=== PATIENT | female | born 2000 | race Caucasian/White ===

== ENCOUNTER 2020-05-02 09:01 | Outpatient (CLI) | payer MEDICAID, SELFPAY ==
[2020-05-02 11:21] LABS: Basophils % 0.5 %; Eosinophils # 0.1 10^3/uL (0.0-0.8); Eosinophils % 1.7 %; Hematocrit 29.5 % (37.0-47.0); Hemoglobin 7.5 g/dL (11.5-15.3); Lymphocytes # 2.4 10^3/uL (1.5-6.5); Lymphocytes % 28.9 %; Mean Corpuscular HGB Conc 25.4 g/dL (30.0-36.0); Mean Corpuscular Hemoglobin 16.4 pg (28.0-34.0); Mean Corpuscular Volume 64.4 fL (81-99); Monocytes # 0.5 10^3/uL (0.2-0.9); Monocytes % 6.4 %; Neutrophils # 5.16 10^3/uL (1.8-8.0); Nucleated Red Blood Cells % 0 %; Platelet Count 361 10^3/cmm (130-400); Red Blood Count 4.58 10^6/uL (4.1-5.3); Red Cell Distribution Width 29.5 % (12.1-15.1); White Blood Count 8.3 10^3/uL (4.5-13.0)
[2020-05-02 11:41] LABS: Ferritin 8 ng/mL (15-150); Iron 10 ug/dL (37-145); Percent Saturation 3.4 % (20-50); Total Iron Binding Capacity 291 mcg/dl; Unsaturated Iron Binding 281 ug/dL (112-347)
[2020-05-02 11:53] LABS: Slide Review Slide Review Perform
[2020-05-02 11:55] LABS: Vitamin B12 545 pg/mL (232-1245)
--- NOTE | 2020-05-04 13:35 | ONC CON_ITS ---
Dr. Pizarro New Patient Note Patient: Wendy Eng Unit #: [id number]: 2000 Dicatated By: Dre Pizarro M.D.Date of Visit: May 02, 2020 Onc MED New Patient/Consult Referring Physician: Curt Camacho N.P. History of Present Illness: Ms. Wendy Eng, is a 19-year-old female with a history of heavy menstrual bleeding for which she has been seeing [facility] in [place], as per patient she was given hormonal therapy with estradiol and TXA prior to further evaluation but she could not get her medication and continues to have heavy bleeding and recently on March 26, 2020 went to the emergency room with rapid heartbeat and dyspnea on exertion of 1 week duration she was also complaining of pain in the upper anterior chest and little numbness in her hands.. And labs done on March 26, 2020 showed white blood count 11 hemoglobin is 5.5 g hematocrit 21.7 MCV 55.1 and platelets 372,000, cardiac enzymes are within normal range patient was given 2 units of blood transfusion with that she felt better and symptoms resolved but continued to feel weak and tired.Her repeat labs on April 18, 2020 showed white blood count 7 hemoglobin 7.6 hematocrit 29.2 MCV 63.9 platelets 328,000 iron studies shows iron 14, iron saturation 4%, TIBC 353 As per patient, in the past she was given IV iron at [facility] but she did develop allergic type of reaction to parenteral iron like feeling choking but she does remember the name of iron infusion. But patient has been taking oral iron for a long time without significant improvement in her hemoglobin as she continued to have heavy menstrual bleeding. And patient is also noncompliant with her medication.She denies any melena or hematochezia denies any hemoptysis or hematemesis denies any jaundice denies any petechia or ecchymosis denies any hematuria. Denies any night sweats denies any fever chills denies any weight loss. Past Medical History: Ms. Eng's medical history consists of amenorrhea, anxiety, depression, and gastroesophageal reflux disease. Past Surgical History: Ms. Valless surgical/procedural history consists of adenoidectomy, hernia repair, and tonsillectomy. Medications: Albuterol Sulfate HFA Aerosol, solution Inhalation PRN, Cetirizine HCl 1 Tablet (of 10 mg) Oral daily, Cholecalciferol 1 Tablet (of 50 mcg ) Oral q 1 week, Dicyclomine HCl 1 Capsule (of 10 mg) Oral PRN, Escitalopram Oxalate 1 Tablet (of 20 mg) Oral daily, Estradiol 1 Tablet (of 1 mg) Oral daily PRN, Famotidine 1 Tablet (of 20 mg) Oral b.i.d., Ferrous Sulfate 2 Tablet (of 325 (65 fe) mg) Oral q 2 days, metFORMIN HCl 1 Tablet (of 500 mg) Oral daily, orlissa 1 Tablet daily Allergies: Tranexamic Acid Social History: Ms. Eng is single. Ms. Eng has never smoked. She has no history of drinking. Family History: There is no documented family history. Review Of Symptoms: Constitutional - Appetite is fair and weight is increasing. No fever, positive for hot flashes and night sweats. Energy levl is poor, ENMT - Positive for sinus congestion/drainage. No mouth sores. Positive for sore throat, no difficulty swallowing, Hematologic/Lymphatic - No abnormal bruising or bleeding, Respiratory - No shortness of breath. No cough. No pleuritic pain or hemoptysis, Cardiovascular - Positive for chest pain and palpitations, Gastrointestinal - No nausea or vomiting. No heartburn or acid reflux. No diarrhea or constipation. No blood in the stool or black stools, Genitourinary (F) - No dysuria or hematuria. No urinary frequency. No urgency or incontinence, Musculoskeletal - No joint or bone pain, Neurologic - No headache. Positive for dizziness. No numbness or tingling. No other focal neurologic symptoms, Psychiatric - Positive for anxiety, depression and insomnia. Vital Signs: Performed on May 02, 2020 11:10: 0, 45.23 (HIGH), 2.31 sq.m, 66 in, 98 %, 97 /min, 16 /min, 147/72 mm(hg) (HIGH), 97.3 F (LOW), and 280.2 lbs (HIGH). Performance Status: 0 - Fully active, able to carry on all predisease activities without restrictions. (ECOG) Physical Examination: ENMT - No mouth sores, no thrush, no jaundice, Respiratory - Lungs are clear to auscultation, Cardiovascular - Regular rate and rhythm of heart, Abdomen - Soft, bowel sounds present, Extremities - No visible edema. Lab/Imaging: Most recent lab results are not available for this patient. Impression: Severe iron deficiency anemia most likely due to heavy menstrual bleeding, on oral iron Status post 2 units of packed RBCs on March 26, 2020 for hemoglobin 5.5 g. Diabetes, obesity Heavy menstrual bleeding now being evaluated by [facility] in [place] Plan: Discussed with patient regarding her labs which showed White blood count 8.3 hemoglobin 7.5 g hematocrit 29.5 platelets 381,000 MCV 64.4, iron saturation 3.4%, iron 10, ferritin 8, TIBC 291, B12 545 Clinically, patient is doing reasonably well, no new signs symptom except mild to moderate generalized weakness and fatigue due to moderate iron deficiency anemia, patient is on oral iron supplement ferrous sulfate 1 tablet daily and still having heavy menstrual bleeding, patient was advised to increase iron supplement twice a day for 1 month and suggested to take it empty stomach with vitamin C for better absorption in the meantime will obtain records from [facility] regarding formulation of parenteral iron given there to which patient developed allergic reaction, as patient has history of noncompliance and if her repeat labs and iron studies in 1 month shows no improvement then will try another form of parenteral iron but with a test dose prior to infusion Return to clinic in 1 month with CBC and iron studies. Patient was advised in case she developed dizziness, chest pain or palpitation she need to call us early for evaluation or go to emergency room.Patient was also advised to avoid aspirin or NSAIDs Signed By: Dre Pizarro M.D. <<Signature on File>>
== END 2020-05-02 09:02 | disposition home or self-care (01) ==
LOC: ONCMED 09:05
PROVIDERS: PCP Nurse Practitioner Family; Visit Provider Internal Medicine Hematology & Oncology
DX: D50.9 Iron deficiency anemia, unspecified (principal); N92.0 Excessive and frequent menstruation with regular cycle
CPT/HCPCS: 36415; 82607; 82728; 83540; 83550; 85025; 99203

== ENCOUNTER 2020-06-04 13:56 | Outpatient (CLI) | payer MEDICAID, SELFPAY ==
[2020-06-04 14:51] LABS: Basophils % 0.4 %; Eosinophils # 0.1 10^3/uL (0.0-0.8); Eosinophils % 1.8 %; Hematocrit 31.7 % (37.0-47.0); Hemoglobin 8.2 g/dL (11.5-15.3); Lymphocytes # 2.3 10^3/uL (1.5-6.5); Lymphocytes % 34.6 %; Mean Corpuscular HGB Conc 25.9 g/dL (30.0-36.0); Mean Corpuscular Hemoglobin 16.3 pg (28.0-34.0); Monocytes # 0.5 10^3/uL (0.2-0.9); Monocytes % 7.4 %; Neutrophils # 3.68 10^3/uL (1.8-8.0); Neutrophils % 54.8 %; Nucleated Red Blood Cells % 0 %; Platelet Count 163 10^3/cmm (130-400); Red Blood Count 5.03 10^6/uL (4.1-5.3); Red Cell Distribution Width 25.7 % (12.1-15.1); White Blood Count 6.7 10^3/uL (4.5-13.0)
[2020-06-04 15:22] LABS: Ferritin 6 ng/mL (15-150); Iron 21 ug/dL (37-145); Percent Saturation 6.4 % (20-50); Total Iron Binding Capacity 324 mcg/dl; Unsaturated Iron Binding 303 ug/dL (112-347)
[2020-06-04 15:32] LABS: Slide Review Slide Review Perform
--- NOTE | 2020-06-04 16:12 | ONC FU_ITS ---
Dr. Pizarro follow up note Patient: Wendy Eng Unit #: [id number]: 2000 Dicatated By: Dre Pizarro M.D.Date of Visit:Jun 04, 2020 Onc Med Follow-up/Prog Note History of Present Illness: Ms. Wendy Eng, is a 19-year-old female with a history of heavy menstrual bleeding for which she has been seeing [facility] in [place], as per patient she was given hormonal therapy with estradiol and TXA prior to further evaluation but she could not get her medication and continues to have heavy bleeding and recently on March 26, 2020 went to the emergency room with rapid heartbeat and dyspnea on exertion of 1 week duration she was also complaining of pain in the upper anterior chest and little numbness in her hands.. And labs done on March 26, 2020 showed white blood count 11 hemoglobin is 5.5 g hematocrit 21.7 MCV 55.1 and platelets 372,000, cardiac enzymes are within normal range patient was given 2 units of blood transfusion with that she felt better and symptoms resolved but continued to feel weak and tired.Her repeat labs on April 18, 2020 showed white blood count 7 hemoglobin 7.6 hematocrit 29.2 MCV 63.9 platelets 328,000 iron studies shows iron 14, iron saturation 4%, TIBC 353 As per patient, in the past she was given IV iron at [facility] but she did develop allergic type of reaction to parenteral iron like feeling choking but she does not remember the name of iron infusion. But patient has been taking oral iron for a long time without significant improvement in her hemoglobin as she continued to have heavy menstrual bleeding. And patient is also noncompliant with her medication.She denies any melena or hematochezia denies any hemoptysis or hematemesis denies any jaundice denies any petechia or ecchymosis denies any hematuria. Denies any night sweats denies any fever chills denies any weight loss. Came for follow-up, denies any specific complaints except generalized weakness and fatigue on exertion, no melena or hematochezia, no nausea or vomiting, no diarrhea constipation, no menstrual periods since last visit, tolerating oral iron reasonably well Medications: Albuterol Sulfate HFA Aerosol, solution Inhalation PRN, Cetirizine HCl 1 Tablet (of 10 mg) Oral daily PRN, Dicyclomine HCl 1 Capsule (of 10 mg) Oral PRN, Escitalopram Oxalate 1 Tablet (of 20 mg) Oral daily, Estradiol 1 Tablet (of 1 mg) Oral daily PRN, Famotidine 1 Tablet (of 20 mg) Oral b.i.d., Ferrous Sulfate 2 Tablet (of 325 (65 fe) mg) Oral q 2 days, metFORMIN HCl 1 Tablet (of 500 mg) Oral daily Allergies: Tranexamic Acid Review of Systems: Review of Systems is not available for this patient. Vital Signs: Performed on Jun 04, 2020 15:32 Height - 66.00 in Weight - 283.4 lbs (HIGH) BSA - 2.32 sq.m BMI - 45.74 (HIGH) Temperature - 97.5 F (LOW) Pulse - 71 /min Respiration - 18 /min BP - 135/81 mm(hg) O2 Sat - 99 % Pain - 0 Performance Status: 1 - No physically strenuous activity, but ambulatory and able to carry out light or sedentary work (e.g. office work, light house work). (ECOG) Physical Examination: ENMT - No mouth sores, no thrush, no jaundice, Respiratory - Lungs are clear to auscultation, Cardiovascular - Regular rate and rhythm of heart, Abdomen - Soft, bowel sounds present, Extremities - No visible edema. Lab/Imaging: Test performed on May 02, 2020 11:10 Ferritin 8 ng/mL Iron 10 mcg/dL Vitamin B12 545 pg/mL Iron Binding Capacity (TIBC) 291 mcg/dl % Iron Saturation 3.4 % UIBC 281 mcg/dL WBC 8.3 10 3/uL RBC 4.58 10 6/uL HGB 7.5 g/dL HCT 29.5 % MCV 64.4 fL MCH 16.4 pg MCHC 25.4 g/dL RDW 29.5 % Platelet Count 361 10 3/cmm Neutrophils 5.16 10 3/uL Lymphocytes 2.4 10 3/uL Monocytes 0.5 10 3/uL Eosinophils 0.1 10 3/uL Basophils 0.0 10 3/uL Neutrophil % 62.0 % Lymphocyte % 28.9 % Monocyte % 6.4 % Eosinophil % 1.7 % Basophils % 0.5 % NRBC % 0 % CBC Slide Review Slide Review Perform SLIDE REVIEW AGREES WITH AUTOMATED RESULT Impression: Severe iron deficiency anemia most likely due to heavy menstrual bleeding, on oral iron Status post 2 units of packed RBCs on March 26, 2020 for hemoglobin 5.5 g. Diabetes, obesity Heavy menstrual bleeding now being evaluated by [facility] in [place] Plan: Discussed with patient regarding her labs white blood count 6.7 hemoglobin 8.2 g compared to 7.5 g on May 02, 2020 hematocrit 31.7 MCV 63, platelets under 63,000 iron saturation 6.4% iron 21 compared to 10 on May 02, 2020 ferritin 6 and her B12 was 545 Clinically, patient is doing reasonably well, tolerating oral iron reasonably well for iron deficiency anemia probably due to heavy menstrual periods, her mother is thinking about transferring her care from [place] to [place] [facility] We are still waiting for information regarding parenteral iron given to her at [facility] in [place], to which patient developed allergic reaction. In the meantime, as her hemoglobin is improving although her iron stores remained low, will continue with oral iron twice a day for another month and she will return to clinic 1 month with CBC and iron studies, if it continues shows improvement we will continue with oral iron otherwise consider switching her to parenteral iron. Signed By: Dre Pizarro M.D. <<Signature on File>>
== END 2020-06-04 13:57 | disposition home or self-care (01) ==
PROVIDERS: PCP Nurse Practitioner Family; Visit Provider Internal Medicine Hematology & Oncology
DX: D50.9 Iron deficiency anemia, unspecified (principal); N92.0 Excessive and frequent menstruation with regular cycle; E11.9 Type 2 diabetes mellitus without complications; E66.9 Obesity, unspecified; Z68.42 Body mass index [BMI] 45.0-49.9, adult; Z79.84 Long term (current) use of oral hypoglycemic drugs
CPT/HCPCS: 36415; 82728; 83540; 83550; 85025; G0463

== ENCOUNTER 2020-07-04 11:05 | Outpatient (CLI) | payer MEDICAID, SELFPAY ==
[2020-07-04 11:58] LABS: Basophils % 0.3 %; Hemoglobin 8.9 g/dL (11.5-15.3); Nucleated Red Blood Cells % 0 %
[2020-07-04 12:05] LABS: Eosinophils # 0.1 10^3/uL (0.0-0.8); Eosinophils % 1.3 %; Lymphocytes % 22.4 %; Mean Corpuscular HGB Conc 26.2 g/dL (30.0-36.0); Mean Corpuscular Hemoglobin 15.9 pg (28.0-34.0); Mean Corpuscular Volume 60.7 fL (81-99); Monocytes # 0.6 10^3/uL (0.2-0.9); Monocytes % 6.7 %; Neutrophils # 6.19 10^3/uL (1.8-8.0); Neutrophils % 68.9 %; Platelet Count 391 10^3/cmm (130-400); Red Cell Distribution Width 23.3 % (12.1-15.1)
[2020-07-04 12:31] LABS: Ferritin 6 ng/mL (15-150); Iron 161 ug/dL (37-145); Total Iron Binding Capacity 322 mcg/dl; Unsaturated Iron Binding 161 ug/dL (112-347)
--- NOTE | 2020-07-04 13:36 | ONC FU_ITS ---
Dr. Pizarro follow up note Patient: Wendy Eng Unit #: [id number]: 2000 Dicatated By: Dre Pizarro M.D.Date of Visit:Jul 04, 2020 Onc Med Follow-up/Prog Note History of Present Illness: Ms. Wendy Eng, is a 19-year-old female with a history of heavy menstrual bleeding for which she has been seeing [facility] in [place], as per patient she was given hormonal therapy with estradiol and TXA prior to further evaluation but she could not get her medication and continues to have heavy bleeding and recently on March 26, 2020 went to the emergency room with rapid heartbeat and dyspnea on exertion of 1 week duration she was also complaining of pain in the upper anterior chest and little numbness in her hands.. And labs done on March 26, 2020 showed white blood count 11 hemoglobin is 5.5 g hematocrit 21.7 MCV 55.1 and platelets 372,000, cardiac enzymes are within normal range patient was given 2 units of blood transfusion with that she felt better and symptoms resolved but continued to feel weak and tired.Her repeat labs on April 18, 2020 showed white blood count 7 hemoglobin 7.6 hematocrit 29.2 MCV 63.9 platelets 328,000 iron studies shows iron 14, iron saturation 4%, TIBC 353 As per patient, in the past she was given IV iron at [facility] but she did develop allergic type of reaction to parenteral iron like feeling choking but she does not remember the name of iron infusion. But patient has been taking oral iron for a long time without significant improvement in her hemoglobin as she continued to have heavy menstrual bleeding. And patient is also noncompliant with her medication.She denies any melena or hematochezia denies any hemoptysis or hematemesis denies any jaundice denies any petechia or ecchymosis denies any hematuria. Denies any night sweats denies any fever chills denies any weight loss. Came for follow-up, denies any specific complaints except starting her menstrual periods again and patient is also transferring her [facility] care from [place] to [place] and now scheduled to see [facility] here in town in July 2020. Tolerating oral iron well otherwise, no abdominal pain, no indigestion, no constipation, no fever chills, no nausea or vomiting Medications: Albuterol Sulfate HFA Aerosol, solution Inhalation PRN, Escitalopram Oxalate 1 Tablet (of 20 mg) Oral daily, Ferrous Sulfate 2 Tablet (of 325 (65 fe) mg) Oral q 2 days Allergies: Tranexamic Acid Review of Systems: Constitutional - Appetite is fair and weight is increasing. No fever, positive for hot flashes and night sweats. Energy levl is poor, ENMT - Positive for sinus congestion/drainage. No mouth sores. Positive for sore throat, no difficulty swallowing, Hematologic/Lymphatic - No abnormal bruising or bleeding, Respiratory - No shortness of breath. No cough. No pleuritic pain or hemoptysis, Cardiovascular - Positive for chest pain and palpitations, Gastrointestinal - No nausea or vomiting. No heartburn or acid reflux. No diarrhea or constipation. No blood in the stool or black stools, Genitourinary (F) - No dysuria or hematuria. No urinary frequency. No urgency or incontinence, Musculoskeletal - No joint or bone pain, Neurologic - No headache. Positive for dizziness. No numbness or tingling. No other focal neurologic symptoms, Psychiatric - Positive for anxiety, depression and insomnia. Vital Signs: Performed on Jul 04, 2020 12:36 Height - 66.00 in Weight - 285.4 lbs (HIGH) BSA - 2.33 sq.m BMI - 46.07 (HIGH) Temperature - 97.6 F (LOW) Pulse - 87 /min Respiration - 20 /min BP - 118/76 mm(hg) O2 Sat - 99 % Pain - 0 Performance Status: 0 - Fully active, able to carry on all predisease activities without restrictions. (ECOG) Physical Examination: ENMT - No mouth sores, no thrush, no jaundice, Respiratory - Lungs are clear to auscultation, Cardiovascular - Regular rate and rhythm of heart, Abdomen - Soft, bowel sounds present, Extremities - No visible edema. Lab/Imaging: Test performed on Jun 04, 2020 14:20 Ferritin 6 ng/mL Iron 21 mcg/dL Iron Binding Capacity (TIBC) 324 mcg/dl % Iron Saturation 6.4 % UIBC 303 mcg/dL WBC 6.7 10 3/uL RBC 5.03 10 6/uL HGB 8.2 g/dL HCT 31.7 % MCV 63.0 fL MCH 16.3 pg MCHC 25.9 g/dL RDW 25.7 % Platelet Count 163 10 3/cmm Neutrophils 3.68 10 3/uL Lymphocytes 2.3 10 3/uL Monocytes 0.5 10 3/uL Eosinophils 0.1 10 3/uL Basophils 0.0 10 3/uL Neutrophil % 54.8 % Lymphocyte % 34.6 % Monocyte % 7.4 % Eosinophil % 1.8 % Basophils % 0.4 % NRBC % 0 % CBC Slide Review Slide Review Perform Test performed on May 02, 2020 11:10 Vitamin B12 545 pg/mL Impression: Severe iron deficiency anemia most likely due to heavy menstrual bleeding, on oral iron Status post 2 units of packed RBCs on March 26, 2020 for hemoglobin 5.5 g. Diabetes, obesity Heavy menstrual bleeding now being evaluated by [facility] in [place] Plan: Discussed with patient regarding her labs white blood count 9 hemoglobin 8.9 g compared to 8.2 g on June 04, 2020 and 7.5 g on May 02, 2020 platelets 391,000 MCV 60.7 iron saturation 50% compared to 6.4% on June 04, 2020 ferritin 6, iron 161 compared to 21 on June 04, 2020 Clinically, patient is doing reasonably well, somewhat more energetic her follow-up labs shows her hemoglobin continue to improve, still has iron deficiency but with some improvement with oral iron supplement., Still waiting for information regarding her parenteral iron infusion given at [facility] in [place] as mentioned earlier patient did develop allergic reaction to parenteral iron there. She return to clinic in 1 month with CBC and iron studies and a follow-up labs shows no improvement in her hemoglobin or iron stores, will consider parenteral iron but before that we will try to get information from [facility] regarding type of parenteral iron she was given to which she developed allergic reaction. Signed By: Dre Pizarro M.D. <<Signature on File>>
== END 2020-07-04 11:06 | disposition home or self-care (01) ==
LOC: ONCMED 11:07
PROVIDERS: PCP Nurse Practitioner Family; Visit Provider Internal Medicine Hematology & Oncology
DX: D50.9 Iron deficiency anemia, unspecified (principal); N92.0 Excessive and frequent menstruation with regular cycle; E11.9 Type 2 diabetes mellitus without complications; E66.9 Obesity, unspecified; Z68.42 Body mass index [BMI] 45.0-49.9, adult
CPT/HCPCS: 36415; 82728; 83540; 83550; 85025; G0463

== ENCOUNTER → 2020-08-01 11:30 | Outpatient (BNVA) | payer MEDICAID, SELFPAY | PROVIDERS: PCP Nurse Practitioner Family; Visit Provider Nurse Practitioner Women's Health | DX: D50.0 Iron deficiency anemia secondary to blood loss (chronic) (principal); N93.9 Abnormal uterine and vaginal bleeding, unspecified | CPT/HCPCS: 83021; 84443; 84702; 85025; 85240; 85245; 85246 ==

== ENCOUNTER → 2020-08-06 09:09 | Outpatient (BNVA) | payer MEDICAID, SELFPAY | PROVIDERS: PCP Nurse Practitioner Family; Visit Provider Nurse Practitioner Women's Health | DX: E28.2 Polycystic ovarian syndrome (principal); N85.4 Malposition of uterus; N83.8 Other noninflammatory disorders of ovary, fallopian tube and broad ligament | CPT/HCPCS: 76830 ==

== ENCOUNTER 2020-08-13 07:59 | Outpatient (CLI) | payer MEDICAID, SELFPAY ==
[2020-08-13 08:43] LABS: Basophils % 0.4 %; Eosinophils # 0.2 10^3/uL (0.0-0.8); Eosinophils % 2.6 %; Hematocrit 31.3 % (37.0-47.0); Hemoglobin 8.2 g/dL (11.5-15.3); Lymphocytes # 2.4 10^3/uL (1.5-6.5); Lymphocytes % 25.9 %; Mean Corpuscular HGB Conc 26.2 g/dL (30.0-36.0); Mean Corpuscular Hemoglobin 16.6 pg (28.0-34.0); Mean Corpuscular Volume 63.2 fL (81-99); Monocytes # 0.7 10^3/uL (0.2-0.9); Monocytes % 7.4 %; Neutrophils # 5.79 10^3/uL (1.8-8.0); Neutrophils % 63.5 %; Nucleated Red Blood Cells % 0 %; Platelet Count 381 10^3/cmm (130-400); Red Blood Count 4.95 10^6/uL (4.1-5.3); Red Cell Distribution Width 29.4 % (12.1-15.1); White Blood Count 9.1 10^3/uL (4.5-13.0)
[2020-08-13 09:04] LABS: Ferritin 7 ng/mL (15-150); Iron 13 ug/dL (37-145); Percent Saturation 3.8 % (20-50); Total Iron Binding Capacity 339 mcg/dl; Unsaturated Iron Binding 326 ug/dL (112-347)
--- NOTE | 2020-08-13 11:16 | ONC FU_ITS ---
Dr. Pizarro follow up note Patient: Wendy Eng Unit #: [id number]: 2000 Dicatated By: Dre Pizarro M.D.Date of Visit:Aug 13, 2020 Onc Med Follow-up/Prog Note History of Present Illness: Ms. Wendy Eng, is a 19-year-old female with a history of heavy menstrual bleeding for which she has been seeing ADULT DAYCARE COORDINATOR in [place], as per patient she was given hormonal therapy with estradiol and TXA prior to further evaluation but she could not get her medication and continues to have heavy bleeding and recently on March 26, 2020 went to the emergency room with rapid heartbeat and dyspnea on exertion of 1 week duration she was also complaining of pain in the upper anterior chest and little numbness in her hands.. And labs done on March 26, 2020 showed white blood count 11 hemoglobin is 5.5 g hematocrit 21.7 MCV 55.1 and platelets 372,000, cardiac enzymes are within normal range patient was given 2 units of blood transfusion with that she felt better and symptoms resolved but continued to feel weak and tired.Her repeat labs on April 18, 2020 showed white blood count 7 hemoglobin 7.6 hematocrit 29.2 MCV 63.9 platelets 328,000 iron studies shows iron 14, iron saturation 4%, TIBC 353 As per patient, in the past she was given IV iron at [facility] but she did develop allergic type of reaction to parenteral iron like feeling choking but she does not remember the name of iron infusion. But patient has been taking oral iron for a long time without significant improvement in her hemoglobin as she continued to have heavy menstrual bleeding. And patient is also noncompliant with her medication.She denies any melena or hematochezia denies any hemoptysis or hematemesis denies any jaundice denies any petechia or ecchymosis denies any hematuria. Denies any night sweats denies any fever chills denies any weight loss. Came for follow-up, denies any specific complaints except generalized weakness and fatigue, patient is tolerating oral iron twice a day well except off-and-on constipation for which she is responding to stool softeners. Patient has seen new ADULT DAYCARE COORDINATOR here in town ordered sonogram of her uterus which showed thickening of uterine wall and ovarian lesion. As per patient she was started on Orilissa last week for heavy menstrual periods and hopefully this will slow down her menses. She also had hemoglobin electrophoresis as well as von Willebrand testing and hemoglobin electrophoresis to rule out hemoglobinopathy done on August 01, 2020 and it came back normal rather consistent with iron deficiency. Medications: Albuterol Sulfate HFA Aerosol, solution Inhalation PRN, Escitalopram Oxalate 1 Tablet (of 20 mg) Oral daily, Ferrous Sulfate 2 Tablet (of 325 (65 fe) mg) Oral q 2 days, Norethindrone Acetate 1 Tablet (of 5 mg) Oral daily Allergies: Feraheme and Tranexamic Acid. Review of Systems: Constitutional - Appetite is fair and weight is increasing. No fever, positive for hot flashes and night sweats. Energy levl is poor, ENMT - Positive for sinus congestion/drainage. No mouth sores. Positive for sore throat, no difficulty swallowing, Hematologic/Lymphatic - No abnormal bruising or bleeding, Respiratory - No shortness of breath. No cough. No pleuritic pain or hemoptysis, Cardiovascular - Positive for chest pain and palpitations, Gastrointestinal - No nausea or vomiting. No heartburn or acid reflux. No diarrhea or constipation. No blood in the stool or black stools, Genitourinary (F) - No dysuria or hematuria. No urinary frequency. No urgency or incontinence, Musculoskeletal - No joint or bone pain, Neurologic - No headache. Positive for dizziness. No numbness or tingling. No other focal neurologic symptoms, Psychiatric - Positive for anxiety, depression and insomnia. Vital Signs: Performed on Aug 13, 2020 09:37 Height - 66.00 in Weight - 291.6 lbs (HIGH) BSA - 2.35 sq.m BMI - 47.07 (HIGH) Temperature - 97.4 F (LOW) Pulse - 97 /min Respiration - 18 /min BP - 161/67 mm(hg) (HIGH) O2 Sat - 100 % Pain - 8 Fatigue - 6 Performance Status: 1 - No physically strenuous activity, but ambulatory and able to carry out light or sedentary work (e.g. office work, light house work). (ECOG) Physical Examination: ENMT - No mouth sores, no thrush, no jaundice, Respiratory - Lungs are clear to auscultation, Cardiovascular - Regular rate and rhythm of heart, Abdomen - Soft, bowel sounds present, Extremities - No visible edema. Lab/Imaging: Test performed on Aug 02, 2020 16:41 HCT 6 % HGB 23.5 g/dL Test performed on Jul 04, 2020 11:27 Ferritin 6 ng/mL Iron 161 mcg/dL Iron Binding Capacity (TIBC) 322 mcg/dl % Iron Saturation 50.0 % UIBC 161 mcg/dL Test performed on Jul 04, 2020 11:25 WBC 9.0 10 3/uL RBC 5.60 10 6/uL MCV 60.7 fL MCH 15.9 pg MCHC 26.2 g/dL RDW 23.3 % Platelet Count 391 10 3/cmm Neutrophils 6.19 10 3/uL Lymphocytes 2.0 10 3/uL Monocytes 0.6 10 3/uL Eosinophils 0.1 10 3/uL Basophils 0.0 10 3/uL Neutrophil % 68.9 % Lymphocyte % 22.4 % Monocyte % 6.7 % Eosinophil % 1.3 % Basophils % 0.3 % NRBC % 0 % Test performed on Jun 04, 2020 14:20 CBC Slide Review Slide Review Perform Test performed on May 02, 2020 11:10 Vitamin B12 545 pg/mL Impression: Severe iron deficiency anemia most likely due to heavy menstrual bleeding, on oral iron Status post 2 units of packed RBCs on March 26, 2020 for hemoglobin 5.5 g.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 off-and-on constipation, relieved with stool softener. Her follow-up labs shows persistent iron deficiency anemia, and patient has history of hypersensitivity reaction to Feraheme so other option would be considering Injectafer which is a carboxymaltose preparation but with premedication steroids/Benadryl/Tylenol and test dose prior to infusion to minimize the risk of hypersensitivity reaction or other option would be as patient is already started on Orilissa to control heavy menses, with that if blood loss is controlled then her hemoglobin and iron stores may improve while on oral iron unless she has malabsorption. Will suggest increasing her iron dose to 3 times a day along with vitamin C to improve absorption and then repeat CBC and iron studies in a month and if her blood loss due to menses get controlled with Orilissa and her hemoglobin and iron stores improved with oral iron supplement 3 times a day then will continue same otherwise will consider parenteral iron, with testing dose as well as premedication to minimize risk of hypersensitivity reaction. Patient and her mother expressed full understanding and agreed with the plan. We will also check PT PTT and bleeding time to rule out underlying bleeding disorder although her ADULT DAYCARE COORDINATOR did check von Willebrand and factor VIII and hemoglobin electrophoresis which came back negative. Return to clinic in 1 month with CBC and iron studies Signed By: Dre Pizarro M.D. <<Signature on File>>
[2020-08-13 11:33] LABS: INR 1.03 (0.8-1.2)
== END 2020-08-13 08:00 | disposition home or self-care (01) ==
LOC: ONCMED 08:01
PROVIDERS: PCP Nurse Practitioner Family; Visit Provider Internal Medicine Hematology & Oncology
DX: D50.9 Iron deficiency anemia, unspecified (principal); N92.0 Excessive and frequent menstruation with regular cycle; E11.9 Type 2 diabetes mellitus without complications; E66.9 Obesity, unspecified; Z79.3 Long term (current) use of hormonal contraceptives; Z68.42 Body mass index [BMI] 45.0-49.9, adult
CPT/HCPCS: 36415; 82728; 83540; 83550; 85025; 85610; 99214

== ENCOUNTER → 2020-08-21 11:10 | Outpatient (BNVA) | payer MEDICAID, SELFPAY | PROVIDERS: PCP Nurse Practitioner Family; Visit Provider Obstetrics & Gynecology | DX: N93.9 Abnormal uterine and vaginal bleeding, unspecified (principal) | CPT/HCPCS: 88305 ==

== ENCOUNTER → 2020-08-27 10:59 | Outpatient (BNVA) | payer MEDICAID, SELFPAY | PROVIDERS: PCP Nurse Practitioner Family; Visit Provider Obstetrics & Gynecology | DX: Z01.812 Encounter for preprocedural laboratory examination (principal); D50.0 Iron deficiency anemia secondary to blood loss (chronic); N92.0 Excessive and frequent menstruation with regular cycle; R93.89 Abnormal findings on diagnostic imaging of other specified body structures | CPT/HCPCS: 87635 ==

== ENCOUNTER 2020-09-21 08:54 | Outpatient (CLI) | payer MEDICAID, SELFPAY ==
[2020-09-21 09:30] LABS: Basophils % 0.4 %; Eosinophils # 0.2 10^3/uL (0.0-0.8); Eosinophils % 1.9 %; Hematocrit 33.5 % (37.0-47.0); Hemoglobin 8.7 g/dL (11.5-15.3); Lymphocytes % 31.7 %; Mean Corpuscular Hemoglobin 16.5 pg (28.0-34.0); Mean Corpuscular Volume 63.4 fL (81-99); Monocytes # 0.6 10^3/uL (0.2-0.9); Monocytes % 6.6 %; Neutrophils # 5.66 10^3/uL (1.8-8.0); Nucleated Red Blood Cells % 0 %; Platelet Count 510 10^3/cmm (130-400); Red Blood Count 5.28 10^6/uL (4.1-5.3); Red Cell Distribution Width 26.5 % (12.1-15.1); White Blood Count 9.6 10^3/uL (4.5-13.0)
[2020-09-21 09:54] LABS: Ferritin 6 ng/mL (15-150); Iron 12 ug/dL (37-145); Percent Saturation 3.6 % (20-50); Total Iron Binding Capacity 332 mcg/dl; Unsaturated Iron Binding 320 ug/dL (112-347)
[2020-09-21 09:56] LABS: Mean Platelet Volume 10.5 fL (7.4-10.4); Slide Review Slide Review Perform
--- NOTE | 2020-09-21 11:30 | ONC FU_ITS ---
Dr. Pizarro follow up note Patient: Wendy Eng Unit #: [id number]: 2000 Dicatated By: Dre Pizarro M.D.Date of Visit:Sep 21, 2020 Onc Med Follow-up/Prog Note History of Present Illness: Ms. Wendy Eng, is a 19-year-old female with a history of heavy menstrual bleeding for which she has been seeing CONTENT PUBLISHER in [place], as per patient she was given hormonal therapy with estradiol and TXA prior to further evaluation but she could not get her medication and continues to have heavy bleeding and recently on March 26, 2020 went to the emergency room with rapid heartbeat and dyspnea on exertion of 1 week duration she was also complaining of pain in the upper anterior chest and little numbness in her hands.. And labs done on March 26, 2020 showed white blood count 11 hemoglobin is 5.5 g hematocrit 21.7 MCV 55.1 and platelets 372,000, cardiac enzymes are within normal range patient was given 2 units of blood transfusion with that she felt better and symptoms resolved but continued to feel weak and tired.Her repeat labs on April 18, 2020 showed white blood count 7 hemoglobin 7.6 hematocrit 29.2 MCV 63.9 platelets 328,000 iron studies shows iron 14, iron saturation 4%, TIBC 353 As per patient, in the past she was given IV iron at [facility] but she did develop allergic type of reaction to parenteral iron like feeling choking but she does not remember the name of iron infusion. But patient has been taking oral iron for a long time without significant improvement in her hemoglobin as she continued to have heavy menstrual bleeding. And patient is also noncompliant with her medication.She denies any melena or hematochezia denies any hemoptysis or hematemesis denies any jaundice denies any petechia or ecchymosis denies any hematuria. Denies any night sweats denies any fever chills denies any weight loss. , patient is tolerating oral iron twice a day well except off-and-on constipation for which she is responding to stool softeners. Patient has seen new CONTENT PUBLISHER here in town ordered sonogram of her uterus which showed thickening of uterine wall and ovarian lesion. As per patient she was started on Orilissa last week for heavy menstrual periods and hopefully this will slow down her menses. She also had hemoglobin electrophoresis as well as von Willebrand testing and hemoglobin electrophoresis to rule out hemoglobinopathy done on August 01, 2020 and it came back normal rather consistent with iron deficiency. Came for follow-up, denies any specific complaint except abdominal discomfort with oral iron 3 times a day but tolerating better twice a day. Still having dysfunctional uterine bleeding till 2 weeks ago and now being scheduled for D&C on September 27, 2020. Denies any melena or hematochezia denies any hemoptysis or hematemesis denies any jaundice denies any shortness of breath or palpitation at rest. Medications: Albuterol Sulfate HFA Aerosol, solution Inhalation PRN, Escitalopram Oxalate 1 Tablet (of 20 mg) Oral daily, Euthyrox 1 Tablet (of 100 mcg) Oral daily, Ferrous Sulfate 2 Tablet (of 325 (65 fe) mg) Oral q 2 days, Norethindrone Acetate 1 Tablet (of 5 mg) Oral daily Allergies: Feraheme and Tranexamic Acid. Review of Systems: Review of Systems is not available for this patient. Vital Signs: Performed on Sep 21, 2020 10:37 Height - 66.00 in Weight - 284.6 lbs (LOW) BSA - 2.32 sq.m BMI - 45.94 (HIGH) Temperature - 97.1 F (LOW) Pulse - 96 /min Respiration - 18 /min BP - 135/81 mm(hg) O2 Sat - 98 % Pain - 0 Performance Status: 1 - No physically strenuous activity, but ambulatory and able to carry out light or sedentary work (e.g. office work, light house work). (ECOG) Physical Examination: ENMT - No mouth sores no thrush no jaundice, Respiratory - Lungs are clear to auscultation, Cardiovascular - Regular rate and rhythm of heart, Abdomen - Soft, Bowel sounds present, Extremities - No visible edema. Lab/Imaging: Test performed on Aug 13, 2020 10:50 PT 13.80 SECONDS INR 1.03 Test performed on Aug 13, 2020 08:15 Ferritin 7 ng/mL Iron 13 mcg/dL Iron Binding Capacity (TIBC) 339 mcg/dl % Iron Saturation 3.8 % UIBC 326 mcg/dL WBC 9.1 10 3/uL RBC 4.95 10 6/uL HGB 8.2 g/dL HCT 31.3 % MCV 63.2 fL MCH 16.6 pg MCHC 26.2 g/dL RDW 29.4 % Platelet Count 381 10 3/cmm Neutrophils 5.79 10 3/uL Lymphocytes 2.4 10 3/uL Monocytes 0.7 10 3/uL Eosinophils 0.2 10 3/uL Basophils 0.0 10 3/uL Neutrophil % 63.5 % Lymphocyte % 25.9 % Monocyte % 7.4 % Eosinophil % 2.6 % Basophils % 0.4 % NRBC % 0 % Test performed on Jun 04, 2020 14:20 CBC Slide Review Slide Review Perform Test performed on May 02, 2020 11:10 Vitamin B12 545 pg/mL Impression: Severe iron deficiency anemia most likely due to heavy menstrual bleeding, on oral iron Status post 2 units of packed RBCs on March 26, 2020 for hemoglobin 5.5 g.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 Now on oral iron Diabetes, obesity Heavy menstrual bleeding now being evaluated by CONTENT PUBLISHER, Now on Orilissa Plan: Discussed with patient regarding her labs white blood count 9.6 hemoglobin 8.7 g compared to 8.2 g on August 13, 2020 hematocrit 33.5 platelets 510,000 MCV 63.4 iron saturation 3.6% ferritin 6 iron 12 TIBC 332 Clinically, patient is doing reasonably well, tolerating oral iron twice a day better than 3 times a day, but her follow-up lab work-up shows persistent moderate iron deficiency anemia with some improvement in her hemoglobin but with severe persistent iron deficiency despite of oral iron supplements, as per patient vaginal bleeding is improving and now D&C is under consideration on September 27, 2020. Parenteral iron with premedication was offered but patient is reluctant as she has history of allergic reaction to IV iron in the past. So we will continue with oral iron twice a day and hopefully after D&C her excessive vaginal bleeding or heavy menstrual periods will improve so she return to clinic in 3 weeks with CBC and iron studies Signed By: Dre Pizarro M.D. <<Signature on File>>
== END 2020-09-21 08:55 | disposition home or self-care (01) ==
LOC: ONCMED 08:56
PROVIDERS: PCP Nurse Practitioner Family; Visit Provider Internal Medicine Hematology & Oncology
DX: D50.9 Iron deficiency anemia, unspecified (principal); N92.0 Excessive and frequent menstruation with regular cycle; E11.9 Type 2 diabetes mellitus without complications; E66.9 Obesity, unspecified; Z79.899 Other long term (current) drug therapy
CPT/HCPCS: 82728; 83540; 83550; 84443; 85025; 87635; 99214

== ENCOUNTER 2020-09-27 05:42 | Day surgery (SDC) | payer MEDICAID, SELFPAY ==
[2020-08-27 11:51] VITALS: BMI 46.2
--- NOTE | 2020-08-27 13:58 | ANES.PREANE2 ---
Pre-Anesthetic Assessment Pre-Anesthetic Assessment: Height/Weight: Height 1.66 m Weight 127.913 kg Proposed Procedure: Operation Date: 08/30/20 08:25 Proposed Procedures p Hysteroscopy [id number] N92.0 D50.0 R93.89(Not Applicable) - Aysha Dior MD s Dilation And Curettage (D&C)(Not Applicable) - Aysha Dior MD Was Beta Marlin taken within 24 hours: N/A Social: Social History: No alcohol and No tobacco Exam: Pre-Anes Outpt Exam: alert, oriented x 3, clear to auscultation bilaterally and regular rate & rhythm Airway: Submandibular: WNL Cervical ROM: WNL MP: 2 Dentition: Full Pulmonary: Pulmonary: Asthma CV/HEM: CV/HEM: Anemia (requiring blood tx) Metabolic: Metabolic: Morbid obesity and Thyroid Neuropsych: Neuropsych: Depression Anesthetic Plan: ASA status: 3 Anesthesia: General Risk of > 500 ml blood loss (7ml/kg in children): No PFSH Anesthesia PFSH: Medical History No pertinent past medical history neghx: htn,dm,thyroid,dvt/pe PCP: Curt Camacho Surgical History History of abdominal hernia History of tonsillectomy and adenoidectomy Family History Father Colon cancer dx age 33 Sister Diabetes Ovarian cancer dx age 19 Uterine cancer dx age 19 Grandfather Hypertension Paternal Grandmother Hypertension Maternal Uterine cancer Paternal-- dx age 30s Denies family history of Heart disease Breast cancer Thyroid disease Stroke Social History (Updated 08/27/20 @ 10:25 by ANTOINETTE Maciel) Smoking and tobacco status: never smoked Alcohol intake: never Female Reproductive History: Date of last menstrual period: 06/26/20 Data Anesthesia Cardiac Studies: No Data to Display
[2020-09-27] VITALS (7 sets, daily range): BP systolic 122–157; BP diastolic 72–95; PULSE 82–99; RESP 16–20; TEMP 36.5–36.7; O2SAT 96–100
[2020-09-27 06:21] LABS: Basophils # 0.1 10^3/uL (0.0-0.1); Basophils % 0.6 %; Eosinophils # 0.1 10^3/uL (0.0-0.8); Eosinophils % 1.3 %; Hematocrit 33.7 % (37.0-47.0); Hemoglobin 8.8 g/dL (11.5-15.3); Lymphocytes # 2.7 10^3/uL (1.5-6.5); Lymphocytes % 27.2 %; Mean Corpuscular HGB Conc 26.1 g/dL (30.0-36.0); Mean Corpuscular Hemoglobin 16.4 pg (28.0-34.0); Monocytes # 0.9 10^3/uL (0.2-0.9); Monocytes % 8.5 %; Neutrophils # 6.23 10^3/uL (1.8-8.0); Nucleated Red Blood Cells % 0 %; Platelet Count 493 10^3/cmm (130-400); Red Blood Count 5.35 10^6/uL (4.1-5.3); Red Cell Distribution Width 26.2 % (12.1-15.1); White Blood Count 10.1 10^3/uL (4.5-13.0)
--- NOTE | 2020-09-27 06:36 | ANES.PREANE2 ---
Pre-Anesthetic Assessment Pre-Anesthetic Assessment: Height/Weight: Height 1.66 m Weight 127.913 kg Temp Pulse Resp BP Pulse Ox 97.7 F 97 18 142/84 100 09/27/20 06:01 09/27/20 06:01 09/27/20 06:01 09/27/20 06:01 09/27/20 06:01 Preop Diagnosis: menorrhagia, anemia Proposed Procedure: Operation Date: 09/27/20 07:00 Proposed Procedures p Hysteroscopy w/ Myosure(Not Applicable) - Aysha Dior MD s Dilation And Curettage (D&C)(Not Applicable) - Aysha Dior MD Was Beta Marlin taken within 24 hours: N/A Last intake: Intake Last Liquid Date 09/26/20 Last Solid Date 09/26/20 Social: Social History: No alcohol and No tobacco Exam: Pre-Anes Outpt Exam: alert, oriented x 3, clear to auscultation bilaterally and regular rate & rhythm Airway: Submandibular: WNL Cervical ROM: WNL MP: 2 Dentition: Full Pulmonary: Pulmonary: Asthma CV/HEM: CV/HEM: Anemia Metabolic: Metabolic: Morbid obesity and Thyroid Anesthetic Plan: ASA status: 3 Anesthesia: General Risk of > 500 ml blood loss (7ml/kg in children): No PFSH Anesthesia PFSH: Medical History No pertinent past medical history neghx: htn,dm,thyroid,dvt/pe PCP: Curt Camacho Surgical History History of abdominal hernia History of tonsillectomy and adenoidectomy Family History Father Colon cancer dx age 33 Sister Diabetes Ovarian cancer dx age 19 Uterine cancer dx age 19 Grandfather Hypertension Paternal Grandmother Hypertension Maternal Uterine cancer Paternal-- dx age 30s Denies family history of Heart disease Breast cancer Thyroid disease Stroke Social History (Updated 09/21/20 @ 13:03 by ANTOINETTE Maciel) Smoking and tobacco status: never smoked Alcohol intake: never Female Reproductive History: Date of last menstrual period: 06/26/20 Data Anesthesia CBC & Chem 7: 09/27/20 06:05 Cardiac Studies: No Data to Display
[2020-09-27 06:40] LABS: OR HCG Qualitative Urine Negative (Negative)
[2020-09-27] MEDS: sodium chloride 0.9% 1,000 ML 30 ML IV (06:45)
--- NOTE | 2020-09-27 06:51 | W.PM.OPSUD ---
Surgery/Procedure H&P Update DATE OF PROCEDURE: September 27, 2020 DATE H&P PERFORMED: 09/21/20 H&P UPDATE INFORMATION: I have reviewed H&P completed within last 30 days, I have examined patient prior to procedure and No changes to prior documentation PREOP DIAGNOSIS: menorrhagia, anemia PLANNED PROCEDURE: Operation Date: 09/27/20 07:00 Proposed Procedures p Hysteroscopy w/ Myosure(Not Applicable) - Aysha Dior MD s Dilation And Curettage (D&C)(Not Applicable) - Aysha Dior MD
[2020-09-27] MEDS: ketorolac 30 mg/mL INJ IVP (06:54)
[2020-09-27] MEDS: ceFAZolin 3,000 MG in sodium chloride 0.9% (100 ml) 100 ML 200 MG IV (06:59)
[2020-09-27 07:00] LABS: Slide Review Slide Review Perform
--- NOTE | 2020-09-27 07:56 | PM.OP ---
Operative Report Date of procedure: September 27, 2020 Pre-op Diagnosis: menorrhagia, anemia Post-op diagnosis: same Post-op Diagnosis: uterine fibroid Post-op Findings: excessive tissue with anterior fibroid Procedure Done: hysteroscopy, dilation and curettage with myosure Specimens removed/disposition: endometrial curettings Pathology: other Pathology: endometrial curettings Anesthesia: General Estimated blood loss (mL): 5 IV fluids (mL): 400 Urine output (mL): 25 Complications: none Findings: hysteroscopy deficit- 200 ml Condition: stable Disposition: PACU Procedure: The patient was taken to the operating room where general anesthesia was administered and found to be adequate. She was prepped and draped in the normal sterile fashion in the dorsal lithotomy position in [facility]. A red rubber catheter was used to remove any remaining urine from the bladder. A weighted speculum was placed in the vagina and the anterior lip of the cervix grasped with a single-tooth tenaculum. The cervix was dilated to 16 [place] and the hysteroscope advanced into the endometrial cavity. There was excessive tissue visualized. Using the MyoSure device the excessive tissue was removed. While removing the tissue I noted an anterior fibroid. This was removed with the tissue. Pictures were taken pre and post procedure. All instruments were removed. The patient tolerated the procedure well. Sponge lap and needle counts were correct x3. She was taken to the recovery room in stable condition.
--- NOTE | 2020-09-27 08:01 | PM.DCS ---
Discharge Providers Date of Discharge: September 27, 2020 Attending Provider at Discharge: Aysha Dior MD Primary Care Provider: Curt Camacho Diagnoses at Discharge Discharge Diagnosis (1) Postoperative state: Status: Acute Reason for Visit Reason for Visit: menorrhagia Hospital Course Hospital Course The patient was admitted for surgery. She had surgery. She did well postoperatively and was ready for discharge. Discharge Data Data Completed and Pending: Pending at discharge Category Date Time Status ES surgery / GI i mages Routine Exams 09/27/20 07:29 Taken Labs from last 24 hours 09/27/20 09/27/20 06:36 06:05 WBC 10.1 RBC 5.35 H Hgb 8.8 L Hct 33.7 L MCV 63.0 L MCH 16.4 L MCHC 26.1 L RDW 26.2 H Plt Count 493 H MPV 11.0 H Neut % (Auto) 62.0 Lymph % (Auto) 27.2 [place] % (Auto) 8.5 Eos % (Auto) 1.3 Baso % (Auto) 0.6 Neut # (Auto) 6.23 Lymph # (Auto) 2.7 [place] # (Auto) 0.9 Eos # (Auto) 0.1 Baso # (Auto) 0.1 Nucleated RBC % (a uto) 0 Nucleated RBCs # 0.0 Urine HCG, Qual Negative Vitals: Last Vital Signs Temp 97.7 F 09/27/20 06:01 Pulse 97 09/27/20 06:01 Resp 18 09/27/20 06:01 BP 142/84 09/27/20 06:01 Pulse Ox 100 09/27/20 06:01 Discharge Plan Discharge Patient Disposition: Home Condition: Stable Prescriptions: Continued ferrous sulfate 325 mg (65 mg iron) tablet 325 mg PO DAILY RF: 0 norethindrone acetate 5 mg tablet 5 mg PO DAILY Qty: 30 RF: 3 escitalopram oxalate [Lexapro] 20 mg tablet 20 mg PO DAILY RF: 0 levothyroxine 150 mcg capsule 150 mcg PO DAILY Qty: 30 RF: 3 albuterol sulfate 90 mcg/actuation Hfa Aerosol Inhaler 1 puff INHALATION QID PRN (Reason: Shortness Of Breath) RF: 0 Discharge Orders: Discharge Order (Routine); Ordered 09/27/20 Ordered By: Aysha Dior Discharge Attestations Time Spent in Discharge Care*: less than 30 min Quality Metrics Clinical Quality Measures During this hospital stay, did patient experience: None Coding Level of Care Code Acute Commercial Account Manager for Chg Fwd Diagnoses Postoperative state Z98.890
--- NOTE | 2020-09-27 08:13 | P.PCN_ITS ---
PACU note PACU note: VSS, Good respiratory effort, report to SEMI DRIVER Post-Anesthesia Exam: awake
--- NOTE | 2020-09-27 08:13 | PM.PACU ---
PACU note PACU note: VSS, Good respiratory effort, report to RING CONDUCTOR Post-Anesthesia Exam: awake
--- NOTE | 2020-09-27 09:13 | SUR.PHASEII ---
post op phase 2, pt had small red petechiae type not raised spots across bridge of nose, around eyes and across forehead. patient reported these spots appear when she cries or has anxiety or coughs hard. vs were within normal limits, no swelling, no trouble breathing.
--- NOTE | 2020-09-27 09:16 | SUR.PHASEII ---
patients mother endorsed coughing causing the red spots and fiance' endorsed anxiety induced hives.
--- NOTE | 2020-09-27 10:12 | ANE.PACU2 ---
Inpatient post-anesthesia follow up: Airway intact: Yes Vital signs: Temperature 98.1 F Pulse Rate 95 Respiratory Rate 20 Blood Pressure 122/95 Pulse Oximetry 96 Oxygen Delivery Me thod Room Air Oxygen Flow Rate 6 Fraction of Inspir ed Oxygen Hydration adequate: Yes Nausea and vomiting: No Pain level: 3 Mental status: Baseline
--- NOTE | 2020-09-27 10:25 | SUR.OPER ---
myosure numbers: 200 deficit / 10.5
== END 2020-09-27 09:12 | disposition home or self-care (01) ==
PROVIDERS: Anesthesiology; PCP Nurse Practitioner Family; Visit Provider Obstetrics & Gynecology
PROC: 0UDB8ZZ Extraction of Endometrium, Via Natural or Artificial Opening Endoscopic (ICD-10-PCS; CPT 58558; principal; 2020-09-27 07:00)
PROC: (CPT 58120; 2020-09-27 07:00)
DX: N92.0 Excessive and frequent menstruation with regular cycle (principal); D64.9 Anemia, unspecified; D25.9 Leiomyoma of uterus, unspecified; J45.909 Unspecified asthma, uncomplicated; E66.01 Morbid (severe) obesity due to excess calories; Z68.42 Body mass index [BMI] 45.0-49.9, adult
CPT/HCPCS: 58558; 81025; 84703; 85025; 88305; 96374; J0330; J0690; J1885; J2405; J2704; J3010; J3490; J7030

== ENCOUNTER 2020-10-18 07:51 | Outpatient (CLI) | payer MEDICAID, SELFPAY ==
[2020-10-18 09:12] LABS: Basophils % 0.3 %; Eosinophils # 0.1 10^3/uL (0.0-0.8); Eosinophils % 1.3 %; Hematocrit 35.3 % (37.0-47.0); Hemoglobin 9.1 g/dL (11.5-15.3); Lymphocytes # 2.4 10^3/uL (1.5-6.5); Lymphocytes % 27.5 %; Mean Corpuscular HGB Conc 25.8 g/dL (30.0-36.0); Mean Corpuscular Hemoglobin 16.6 pg (28.0-34.0); Mean Corpuscular Volume 64.4 fL (81-99); Monocytes # 0.6 10^3/uL (0.2-0.9); Monocytes % 7.3 %; Neutrophils # 5.53 10^3/uL (1.8-8.0); Neutrophils % 63.3 %; Nucleated Red Blood Cells % 0 %; Platelet Count 332 10^3/cmm (130-400); Red Blood Count 5.48 10^6/uL (4.1-5.3); Red Cell Distribution Width 25.2 % (12.1-15.1); White Blood Count 8.7 10^3/uL (4.5-13.0)
[2020-10-18 09:38] LABS: Ferritin 9 ng/mL (15-150); Iron 21 ug/dL (37-145); Percent Saturation 6.1 % (20-50); Total Iron Binding Capacity 340 mcg/dl; Unsaturated Iron Binding 319 ug/dL (112-347)
[2020-10-18 09:42] LABS: Slide Review Slide Review Perform
[2020-10-18 10:01] LABS: Folate Level 4.8 ng/mL (4.8-37.3)
--- NOTE | 2020-10-18 16:55 | ONC FU_ITS ---
Dr. Pizarro follow up note Patient: Wendy Eng Unit #: [id number]: [id number] Dicatated By: Dre Pizarro M.D.Date of Visit:Oct 18, 2020 Onc Med Follow-up/Prog Note History of Present Illness: Ms. Wendy Eng, is a 19-year-old female with a history of heavy menstrual bleeding for which she has been seeing [facility] in [place], as per patient she was given hormonal therapy with estradiol and TXA prior to further evaluation but she could not get her medication and continues to have heavy bleeding and recently on March 26, 2020 went to the emergency room with rapid heartbeat and dyspnea on exertion of 1 week duration she was also complaining of pain in the upper anterior chest and little numbness in her hands.. And labs done on March 26, 2020 showed white blood count 11 hemoglobin is 5.5 g hematocrit 21.7 MCV 55.1 and platelets 372,000, cardiac enzymes are within normal range patient was given 2 units of blood transfusion with that she felt better and symptoms resolved but continued to feel weak and tired.Her repeat labs on April 18, 2020 showed white blood count 7 hemoglobin 7.6 hematocrit 29.2 MCV 63.9 platelets 328,000 iron studies shows iron 14, iron saturation 4%, TIBC 353 As per patient, in the past she was given IV iron at [facility] but she did develop allergic type of reaction to parenteral iron like feeling choking but she does not remember the name of iron infusion. But patient has been taking oral iron for a long time without significant improvement in her hemoglobin as she continued to have heavy menstrual bleeding. And patient is also noncompliant with her medication.She denies any melena or hematochezia denies any hemoptysis or hematemesis denies any jaundice denies any petechia or ecchymosis denies any hematuria. Denies any night sweats denies any fever chills denies any weight loss. , patient is tolerating oral iron twice a day well except off-and-on constipation for which she is responding to stool softeners. Patient has seen new [facility] here in town ordered sonogram of her uterus which showed thickening of uterine wall and ovarian lesion. As per patient she was started on Orilissa last week for heavy menstrual periods and hopefully this will slow down her menses. She also had hemoglobin electrophoresis as well as von Willebrand testing and hemoglobin electrophoresis to rule out hemoglobinopathy done on August 01, 2020 and it came back normal rather consistent with iron deficiency. Underwent hysteroscopy, dilation and curettage with MyoSure on September 27, 2020 which showed excessive tissue with anterior fibroid and pathology showed no hyperplasia, atypia, polyp formation or malignancy identified Came for follow-up, denies any specific complaints, now recovering from hysteroscopy and dilation and curettage as per patient she has no more menstrual but pinkish spotting since the procedure done, otherwise taking oral iron twice a day and confirms compliance. No melena or hematochezia, no diarrhea or constipation, no abdominal pain but occasionally indigestion and still complaining of generalized weakness and fatigue but somewhat improving Medications: Albuterol Sulfate HFA Aerosol, solution Inhalation PRN, Escitalopram Oxalate 1 Tablet (of 20 mg) Oral daily, Euthyrox 1 Tablet (of 100 mcg) Oral daily, Ferrous Sulfate 2 Tablet (of 325 (65 fe) mg) Oral q 2 days, Norethindrone Acetate 1 Tablet (of 5 mg) Oral daily Allergies: Feraheme and Tranexamic Acid. Review of Systems: Review of Systems is not available for this patient. Vital Signs: Performed on Oct 18, 2020 10:30 Height - 66.00 in Weight - 285.6 lbs (HIGH) BSA - 2.33 sq.m BMI - 46.10 (HIGH) Temperature - 97.8 F (LOW) Pulse - 90 /min Respiration - 18 /min BP - 141/63 mm(hg) (HIGH) O2 Sat - 97 % Pain - 0 Fatigue - 8 Performance Status: 0 - Fully active, able to carry on all predisease activities without restrictions. (ECOG) Physical Examination: ENMT - No mouth sores, no thrush, no jaundice, Respiratory - Lungs are clear to auscultation, Cardiovascular - Regular rate and rhythm of heart, Abdomen - Soft, Bowel sounds present, Extremities - No visible edema. Lab/Imaging: Test performed on Aug 13, 2020 10:50 PT 13.80 SECONDS INR 1.03 Test performed on Aug 13, 2020 08:15 Ferritin 7 ng/mL Iron 13 mcg/dL Iron Binding Capacity (TIBC) 339 mcg/dl % Iron Saturation 3.8 % UIBC 326 mcg/dL WBC 9.1 10 3/uL RBC 4.95 10 6/uL HGB 8.2 g/dL HCT 31.3 % MCV 63.2 fL MCH 16.6 pg MCHC 26.2 g/dL RDW 29.4 % Platelet Count 381 10 3/cmm Neutrophils 5.79 10 3/uL Lymphocytes 2.4 10 3/uL Monocytes 0.7 10 3/uL Eosinophils 0.2 10 3/uL Basophils 0.0 10 3/uL Neutrophil % 63.5 % Lymphocyte % 25.9 % Monocyte % 7.4 % Eosinophil % 2.6 % Basophils % 0.4 % NRBC % 0 % Test performed on Jun 04, 2020 14:20 CBC Slide Review Slide Review Perform Test performed on May 02, 2020 11:10 Vitamin B12 545 pg/mL Impression: Severe iron deficiency anemia most likely due to heavy menstrual bleeding, on oral iron Status post 2 units of packed RBCs on March 26, 2020 for hemoglobin 5.5 g.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 Now on oral iron Diabetes, obesity Heavy menstrual bleeding now being evaluated by [facility], S/p hysteroscopy with endometrial curettage on September 27, 2020 Plan: Discussed with patient regarding her labs white blood count 8.7 hemoglobin 9.1 g compared to 8.7 g on September 21, 2020 and prior to that 8.2 g hematocrit 35.3 MCV 64.4, platelets 332,000 iron studies pending Clinically, patient is doing reasonably well, tolerating oral iron well with mild indigestion, her follow-up CBC shows improvement in her hemoglobin level but slowly, patient is compliant with oral iron supplement, she was advised to take oral iron on empty stomach with orange juice to maximize absorption and she recently underwent hysteroscopy and endometrial curettage hopefully with that her excessive bleeding due to heavy menstrual periods may improve. She will return to clinic in 1 month with CBC and iron studies, if there is no improvement then we will consider parenteral iron but patient is reluctant because of her experience due to allergic reaction to iron infusion in the past. Return to clinic in 1 month with CBC and iron studies and patient was advised to be compliant with oral iron supplement Signed By: Dre Pizarro M.D. <<Signature on File>>
== END 2020-10-18 07:52 | disposition home or self-care (01) ==
PROVIDERS: PCP Nurse Practitioner Family; Visit Provider Internal Medicine Hematology & Oncology
DX: D50.9 Iron deficiency anemia, unspecified (principal); E11.9 Type 2 diabetes mellitus without complications; E66.9 Obesity, unspecified; N92.0 Excessive and frequent menstruation with regular cycle; T45.4X5D Adverse effect of iron and its compounds, subsequent encounter
CPT/HCPCS: 36415; 82728; 82746; 83540; 83550; 85025; 99214

== ENCOUNTER → 2020-11-07 09:12 | Outpatient (BNVA) | payer MEDICAID, SELFPAY | PROVIDERS: PCP Nurse Practitioner Family; Visit Provider Obstetrics & Gynecology | DX: E03.9 Hypothyroidism, unspecified (principal) | CPT/HCPCS: 84443 ==

== ENCOUNTER → 2020-12-03 11:20 | Outpatient (BNVA) | payer MEDICAID, SELFPAY | PROVIDERS: PCP Nurse Practitioner Family; Visit Provider Obstetrics & Gynecology | DX: E03.9 Hypothyroidism, unspecified (principal); E66.01 Morbid (severe) obesity due to excess calories; Z68.42 Body mass index [BMI] 45.0-49.9, adult; N93.9 Abnormal uterine and vaginal bleeding, unspecified; D50.0 Iron deficiency anemia secondary to blood loss (chronic) | CPT/HCPCS: 83525 ==

== ENCOUNTER 2021-01-16 08:08 | Outpatient (CLI) | payer MEDICAID, SELFPAY ==
[2021-01-16 09:06] LABS: Basophils % 0.4 %; Eosinophils # 0.1 10^3/uL (0.0-0.8); Eosinophils % 0.9 %; Hematocrit 37.7 % (37.0-47.0); Lymphocytes # 2.2 10^3/uL (1.5-6.5); Lymphocytes % 23.3 %; Mean Corpuscular HGB Conc 29.2 g/dL (30.0-36.0); Monocytes # 0.7 10^3/uL (0.2-0.9); Monocytes % 7.5 %; Neutrophils # 6.42 10^3/uL (1.8-8.0); Neutrophils % 67.6 %; Nucleated Red Blood Cells % 0 %; Platelet Count 312 10^3/cmm (130-400); Red Cell Distribution Width 19.9 % (12.1-15.1); White Blood Count 9.5 10^3/uL (4.5-13.0)
[2021-01-16 09:13] LABS: Ferritin 5 ng/mL (15-150); Iron 24 ug/dL (37-145); Percent Saturation 6.5 % (20-50); Total Iron Binding Capacity 369 mcg/dl; Unsaturated Iron Binding 345 ug/dL (112-347)
[2021-01-16 09:26] LABS: Slide Review Slide Review Perform
[2021-01-16 09:27] LABS: Add RBC Morph Yes
[2021-01-16 09:28] LABS: Anisocytosis 2+; Hypochromasia 2+; Microcytosis 2+; Pathology Refferal No
[2021-01-16 09:29] LABS: RBC Morph Comp Yes
--- NOTE | 2021-01-16 16:56 | ONC FU_ITS ---
Dr. Pizarro follow up note Patient: Wendy Eng Unit #: [id number]: [id number] Dicatated By: Dre Pizarro M.D.Date of Visit:Jan 16, 2021 Onc Med Follow-up/Prog Note History of Present Illness: Ms. Wendy Eng, is a 20-year-old female with a history of heavy menstrual bleeding for which she has been seeing [facility] in [place], as per patient she was given hormonal therapy with estradiol and TXA prior to further evaluation but she could not get her medication and continues to have heavy bleeding and recently on March 26, 2020 went to the emergency room with rapid heartbeat and dyspnea on exertion of 1 week duration she was also complaining of pain in the upper anterior chest and little numbness in her hands.. And labs done on March 26, 2020 showed white blood count 11 hemoglobin is 5.5 g hematocrit 21.7 MCV 55.1 and platelets 372,000, cardiac enzymes are within normal range patient was given 2 units of blood transfusion with that she felt better and symptoms resolved but continued to feel weak and tired.Her repeat labs on April 18, 2020 showed white blood count 7 hemoglobin 7.6 hematocrit 29.2 MCV 63.9 platelets 328,000 iron studies shows iron 14, iron saturation 4%, TIBC 353 As per patient, in the past she was given IV iron at [facility] but she did develop allergic type of reaction to parenteral iron like feeling choking but she does not remember the name of iron infusion. But patient has been taking oral iron for a long time without significant improvement in her hemoglobin as she continued to have heavy menstrual bleeding. And patient is also noncompliant with her medication.She denies any melena or hematochezia denies any hemoptysis or hematemesis denies any jaundice denies any petechia or ecchymosis denies any hematuria. Denies any night sweats denies any fever chills denies any weight loss. , patient is tolerating oral iron twice a day well except off-and-on constipation for which she is responding to stool softeners. Patient has seen new [facility] here in town ordered sonogram of her uterus which showed thickening of uterine wall and ovarian lesion. As per patient she was started on Orilissa last week for heavy menstrual periods and hopefully this will slow down her menses. She also had hemoglobin electrophoresis as well as von Willebrand testing and hemoglobin electrophoresis to rule out hemoglobinopathy done on August 01, 2020 and it came back normal rather consistent with iron deficiency. Underwent hysteroscopy, dilation and curettage with MyoSure on September 27, 2020 which showed excessive tissue with anterior fibroid and pathology showed no hyperplasia, atypia, polyp formation or malignancy identified, Now on control pill to control excessive menorrhagia Came for follow-up, denies any specific complaints except excessive sleep during daytime, patient underwent sleep study, as per patient during sleep study she did not sleep at all and she was told there was no evidence of sleep apnea. As per patient since hysteroscopy and now with control pills, her menstrual periods are somewhat more regulated usually last 1 week regularly on monthly basis. Patient is somewhat noncompliant with her oral iron Medications: Albuterol Sulfate HFA Aerosol, solution Inhalation PRN, Escitalopram Oxalate 1 Tablet (of 20 mg) Oral daily, Euthyrox 1 Tablet (of 100 mcg) Oral daily, Ferrous Sulfate 2 Tablet (of 325 (65 fe) mg) Oral q 2 days, Norethindrone Acetate 1 Tablet (of 5 mg) Oral daily Allergies: Feraheme and Tranexamic Acid. Review of Systems: Review of Systems is not available for this patient. Vital Signs: Performed on Jan 16, 2021 10:47 Height - 66.00 in Weight - 290.2 lbs (HIGH) BSA - 2.34 sq.m BMI - 46.84 (HIGH) Temperature - 97.1 F (LOW) Pulse - 101 /min (HIGH) Respiration - 18 /min BP - 139/95 mm(hg) O2 Sat - 98 % Pain - 6 Fatigue - 5 Performance Status: 0 - Fully active, able to carry on all predisease activities without restrictions. (ECOG) Physical Examination: ENMT - No mouth sores, no thrush, no jaundice, Respiratory - Lungs are clear to auscultation, Cardiovascular - Regular rate and rhythm of heart, Abdomen - Soft, bowel sounds present, Extremities - No visible edema or rash. Lab/Imaging: Test performed on Aug 13, 2020 10:50 PT 13.80 SECONDS INR 1.03 Test performed on Aug 13, 2020 08:15 Ferritin 7 ng/mL Iron 13 mcg/dL Iron Binding Capacity (TIBC) 339 mcg/dl % Iron Saturation 3.8 % UIBC 326 mcg/dL WBC 9.1 10 3/uL RBC 4.95 10 6/uL HGB 8.2 g/dL HCT 31.3 % MCV 63.2 fL MCH 16.6 pg MCHC 26.2 g/dL RDW 29.4 % Platelet Count 381 10 3/cmm Neutrophils 5.79 10 3/uL Lymphocytes 2.4 10 3/uL Monocytes 0.7 10 3/uL Eosinophils 0.2 10 3/uL Basophils 0.0 10 3/uL Neutrophil % 63.5 % Lymphocyte % 25.9 % Monocyte % 7.4 % Eosinophil % 2.6 % Basophils % 0.4 % NRBC % 0 % Impression: Severe iron deficiency anemia most likely due to heavy menstrual bleeding, on oral iron Status post 2 units of packed RBCs on March 26, 2020 for hemoglobin 5.5 g.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 Now on oral iron Diabetes, obesity Heavy menstrual bleeding now being evaluated by [facility], S/p hysteroscopy with endometrial curettage on September 27, 2020 Plan: Discussed with patient regarding her labs white blood count 9.5 hemoglobin 11 g compared to 9.1 g previously on October 18, 2020 hematocrit 37.7 platelets 312,000, iron studies shows iron saturation 6.5%, ferritin 5 iron 24, TIBC 369 Clinically, patient doing well her follow-up labs shows improvement in her hemoglobin but persistent severe iron deficiency, patient is noncompliant with her oral iron supplements, patient was advised to increase her oral iron supplement to 2 tablets p.o. daily and was again advised to be compliant with iron supplements and then she will return to clinic in 1 month with CBC and iron studies, if her iron studies showed persistent severe iron deficiency, we may recommend parenteral iron. As far as excessive fatigue and sleepiness is concerned, clinically it appears based on her body weight, patient has sleep apnea although as per patient recently done sleep study failed to confirm it but patient did not sleep so, doubt the sleep study evaluation. Patient was advised to discuss with PMD regarding reconsidering sleep study in a proper way Signed By: Dre Pizarro M.D. <<Signature on File>>
== END 2021-01-16 08:09 | disposition home or self-care (01) ==
LOC: ONCMED 08:16
PROVIDERS: PCP Nurse Practitioner Family; Visit Provider Internal Medicine Hematology & Oncology
DX: D50.9 Iron deficiency anemia, unspecified (principal); E11.9 Type 2 diabetes mellitus without complications; E66.9 Obesity, unspecified; Z68.42 Body mass index [BMI] 45.0-49.9, adult; N92.0 Excessive and frequent menstruation with regular cycle; Z79.899 Other long term (current) drug therapy
CPT/HCPCS: 36415; 82728; 83540; 83550; 85025; 99214

== ENCOUNTER → 2021-03-04 10:34 | Outpatient (BNVA) | payer MEDICAID, SELFPAY | PROVIDERS: PCP Nurse Practitioner Family; Visit Provider Obstetrics & Gynecology | DX: E03.9 Hypothyroidism, unspecified (principal) | CPT/HCPCS: 83525; 84443 ==

== ENCOUNTER → 2021-06-07 11:37 | Outpatient (BNVA) | payer MEDICAID, SELFPAY | PROVIDERS: PCP Nurse Practitioner Family; Visit Provider Obstetrics & Gynecology | DX: E03.9 Hypothyroidism, unspecified (principal) | CPT/HCPCS: 84443 ==

== ENCOUNTER → 2021-11-29 11:08 | Outpatient (BNVA) | payer MEDICAID, SELFPAY | PROVIDERS: PCP Nurse Practitioner Family; Visit Provider Obstetrics & Gynecology | DX: E03.9 Hypothyroidism, unspecified (principal) | CPT/HCPCS: 83525; 84443 ==

== ENCOUNTER 2021-12-26 14:30 | Outpatient (CLI) | payer MEDICAID, SELFPAY ==
--- NOTE | 2021-12-26 14:30 | US_ITS ---
WS: [id number] Exam: US pelvic with transvaginal Date/Time of Exam: 12/26/2021 2:44 PM Reason For Exam: N93.9 - Abnormal uterine and vaginal bleeding, unspecified No adnexal mass or abnormal free fluid collection in the pelvis. The uterus is unremarkable and measu res 6.85 x 3.72 x 3.3 cm. Endometrial thickness is approximately 1 cm. No sign of intrauterine pregna ncy. The right ovary is unremarkable and measures 3 x 1.2 x 1.83 cm. The left ovary is unremarkable i n appearance and measures 3.8 x 2.2 x 2.7 cm. Satisfactory arterial flow noted in the right ovary. Ob taining arterial flow in the left ovary was technically very difficult and unsuccessful due to patien t body habitus. US/US pelvic with transvaginal IMPRESSION: 1. Unremarkable appearing uterus and ovaries. 2. No adnexal mass or abnormal free fluid collection.
== END 2021-12-26 14:31 | disposition home or self-care (01) ==
PROVIDERS: PCP Nurse Practitioner Family; Visit Provider Obstetrics & Gynecology
DX: N93.9 Abnormal uterine and vaginal bleeding, unspecified (principal)
CPT/HCPCS: 76830; 76856

== ENCOUNTER → 2022-01-22 09:27 | Outpatient (BNVA) | payer MEDICAID, SELFPAY | PROVIDERS: PCP Nurse Practitioner Family; Visit Provider Obstetrics & Gynecology | DX: N63.21 Unspecified lump in the left breast, upper outer quadrant (principal); E03.9 Hypothyroidism, unspecified; Z12.4 Encounter for screening for malignant neoplasm of cervix | CPT/HCPCS: 88175 ==

== ENCOUNTER 2022-02-06 09:48 | Outpatient (CLI) | payer MEDICAID, SELFPAY ==
--- NOTE | 2022-02-06 09:52 | US_ITS ---
WS: [id number] ULTRASOUND LEFT BREAST HISTORY: 21-year-old with palpable area 1:00 LEFT breast. COMPARISON: None available. TECHNIQUE: 2-D and Doppler. LEFT breast ultrasound directed to 1:00. This is the area of the palpable abnormality. There is gerber l soft tissue. No distortion of soft tissues or skin thickening. No solid or cystic mass. US/US breast LT limited* [id number] IMPRESSION: BI-RADS: 1-Negative FOLLOW-UP: See Report No abnormality noted LEFT breast in the area of concern.
== END 2022-02-06 09:49 | disposition home or self-care (01) ==
LOC: RAD 09:48
PROVIDERS: PCP Nurse Practitioner Family; Visit Provider Obstetrics & Gynecology
DX: N63.21 Unspecified lump in the left breast, upper outer quadrant (principal)
CPT/HCPCS: 76642

== ENCOUNTER → 2022-08-25 12:16 | Outpatient (BNVA) | payer MEDICAID, SELFPAY | PROVIDERS: PCP Nurse Practitioner Family; Visit Provider Nurse Practitioner Women's Health | DX: N83.8 Other noninflammatory disorders of ovary, fallopian tube and broad ligament (principal); R93.89 Abnormal findings on diagnostic imaging of other specified body structures | CPT/HCPCS: 76830; 84702 ==

== ENCOUNTER → 2022-08-29 11:25 | Outpatient (BNVA) | payer MEDICAID, SELFPAY | PROVIDERS: PCP Nurse Practitioner Family; Visit Provider Obstetrics & Gynecology | DX: E03.9 Hypothyroidism, unspecified (principal); E16.1 Other hypoglycemia | CPT/HCPCS: 83525; 84443 ==

== ENCOUNTER → 2023-08-18 10:54 | Outpatient (BNVA) | payer MEDICAID, SELFPAY | PROVIDERS: PCP Nurse Practitioner Family; Visit Provider Internal Medicine | DX: E16.1 Other hypoglycemia (principal); E03.9 Hypothyroidism, unspecified | CPT/HCPCS: 36415; 83036; 84439; 84443 ==